=== PATIENT | female | born 1985 | race American Indian/Alaskan Native ===

== ENCOUNTER 2017-03-25 16:13 | Inpatient (IN) | payer MEDICAID ==
[2017-03-25] MEDS ORDERED: Ondansetron 4 MG/2 ML SDV IVPUSH PRN (17:08)
[2017-03-25] MEDS ORDERED: Sodium Chloride 0.9% 10 ML Syringe FLUSH PRN (17:08)
--- NOTE | 2017-03-25 17:16 | PCM.HP ---
H&P History of Present Illness - General Date of Service: 03/25/17 Admit Problem/Dx: Admission Diagnosis/Problem Admission Diagnosis/Problem Abdominal pain Source of Information: Patient - History of Present Illness Initial Comments - Free Text/Narative: Patient is a 32 year old female was sent for admission because of fever and right sided abdominal to right flank pain. She started to feel sick in the last four days. NOticed pain on the right lower quadrant up to the right lower back and down to the right leg. Has been having fever, yesterday was 103.1F, nauseated and had an episode of vomiting today. no diarrhea however felt constipated due not eating well. Has been having pain on urination but denies any hematuria. No blood in the stools either. no cough nor shortness of breath. no dysphagia. today, went to clinic, still had fever and work up showed UTI. however, because of persistent fever and pain, was advised admission. she denies history of kidney stones. denies history of recurrent UTI. had history of ovarian cyst surgery and section. LMP was 3 weeks ago; no similar symptoms in the household; no rashes nor any joint pains Right Upper Abdomen Pain Score (Numeric/FACES): 7 Back Pain Score (Numeric/FACES): 4 - Related Data Allergies/Adverse Reactions: Allergies Allergy/AdvReac Type Severity Reaction Status Date / Time No Known Allergies Allergy Verified 03/25/17 18:31 Home Medications: Home Meds Acetaminophen [Tylenol] 325 mg PO Q6H PRN 03/25/17 [History] Cranberry Ext/C/L. Sporogenes [Azo Cranberry] 6 each PO DAILY 03/25/17 [History] Ibuprofen [Ibuprofen Ib] 200 mg PO Q6H PRN 03/25/17 [History] Acetaminophen/oxyCODONE [Percocet 325-5 MG] 1 tab PO Q6H PRN #12 tablet [Rx] Ciprofloxacin HCl [Cipro] 500 mg PO BID #20 tablet 03/28/17 [Rx] Past Medical History - Past Health History Medical/Surgical History: Denies Medical/Surgical History Social & Family History - Tobacco Use Smoking Status *Q: Current Some Day Smoker Years of Tobacco use: 0 Packs/Tins Daily: 0 - Recreational Drug Use Recreational Drug Use: No H&P Review of Systems - Review of Systems: Review Of Systems: See Below General: Reports: Fever, Chills HEENT: Reports: No Symptoms Pulmonary: Reports: No Symptoms Cardiovascular: Reports: No Symptoms Gastrointestinal: Reports: Abdominal Pain, Anorexia, Decreased Appetite, Nausea , Vomiting Genitourinary: Reports: Dysuria Musculoskeletal: Reports: Back Pain Skin: Reports: No Symptoms Exam - Exam Exam: See Below - Vital Signs Weight: 70.76 kg - Exam General: Alert, Oriented HEENT: Conjunctiva Clear Neck: Supple Lungs: Clear to Auscultation, Normal Respiratory Effort Cardiovascular: Regular Rate, Regular Rhythm GI/Abdominal Exam: Soft, Other (tenderness on palpation on the right lower quadrant and right CVAT) Back Exam: Normal Inspection - Patient Data Result Diagrams: 03/27/17 05:40 03/27/17 05:40 *Q Meaningful Use (ADM) - VTE *Q VTE Criteria *Q: - Stroke *Q Stroke Criteria *Q: - AMI *Q AMI Criteria *Q: Problem List Initiated/Reviewed/Updated: Yes Orders Last 24hrs: Active Orders 24 hr Category Date Time Status Admission Status [Patient Status] [ADT] Routine ADT 03/25/17 17:07 Active Patient Status [ADT] Routine ADT 03/25/17 17:08 Ordered Intake and Output [RC] QSHIFT Care 03/25/17 17:08 Ordered Oxygen Therapy [RC] PRN Care 03/25/17 17:08 Ordered Peripheral IV Care [RC] . DIRECTED Care 03/25/17 17:10 Ordered Up With Assistance [RC] ASDIRECTED Care 03/25/17 17:08 Ordered VTE/DVT Education [RC] PER UNIT ROUTINE Care 03/25/17 17:08 Ordered Vital Signs [RC] Q4H Care 03/25/17 17:08 Ordered Nothing per Oral Now Diet [DIET] Diet 03/25/17 Dinner Ordered CULTURE BLOOD [BC] Stat Lab 03/25/17 17:10 Ordered CULTURE BLOOD [BC] Stat Lab 03/25/17 17:10 Ordered CULTURE URINE [RM] Stat Lab 03/25/17 17:08 Uncollected Enoxaparin [Lovenox] Med 03/26/17 09:00 Ordered 40 mg SUBCUT DAILY Ondansetron [Zofran] Med 03/25/17 17:08 Ordered 4 mg IVPUSH Q6H PRN Sodium Chloride 0.9% @ 125 MLS/HR (1000ml) Med 03/25/17 17:15 Ordered Sodium Chloride 0.9% [Normal Saline] 1,000 ml IV ASDIRECTED Sodium Chloride 0.9% [Saline Flush] Med 03/25/17 17:08 Ordered 10 ml FLUSH ASDIRECTED PRN Blood Culture x2 Reflex Set [OM.PC] Stat Ot 03/25/17 17:08 Ordered Peripheral IV Insertion Adult [OM.PC] Routine Oth 03/25/17 17:08 Ordered Resuscitation Status Routine Resus Stat 03/25/17 17:08 Ordered Assessment/Plan Comment:: Sepsis likely secondary to UTI - patient has leukocytosis, fever and urinalysis showing UTI - start IV fluids: normal saline 150ml/Hr; NPO - blood culture, start IV zosyn after specimen obtained - urinalysis showing signs of urine infection: send specmin for culture - however due to tenderness on RLQ + decreased appetite: do CT scan abdomen DVT prophylaxis: Lovenox SQ COde status: full
[2017-03-25] MEDS: Sodium Chloride 0.9% 1,000 ML IV SCH (17:54)
[2017-03-25] MEDS: Acetaminophen 325 MG Tab PO PRN (18:19)
[2017-03-25] MEDS: Piperacillin/Tazobactam 3.375 GM in Sodium Chloride 0.9% 100 ML IV SCH (19:13)
[2017-03-26] MEDS: Acetaminophen 325 MG Tab PO PRN ×3 (00:16→16:07)
[2017-03-26] MEDS: Piperacillin/Tazobactam 3.375 GM in Sodium Chloride 0.9% 100 ML IV SCH ×5 (00:19→23:16)
[2017-03-26] MEDS: Sodium Chloride 0.9% 1,000 ML IV SCH ×3 (02:52→21:02)
[2017-03-26 06:36] LABS: CHLORIDE,CL 103 mmol/L (101-111); SODIUM,NA 137 mmol/L (135-145)
[2017-03-26] MEDS: Enoxaparin 40 MG/0.4 ML Syringe SUBCUT SCH (09:45)
[2017-03-26] MEDS: Acetaminophen/oxyCODONE 325-5 MG Tab PO PRN ×3 (11:44→23:15)
--- NOTE | 2017-03-26 11:46 | PCM.PN ---
- General Info Date of Service: 03/26/17 Admission Dx/Problem (Free Text): Admission Diagnosis/Problem Admission Diagnosis/Problem Abdominal pain Subjective Update: Continues to have pain on the right side of abdomen, mostly in the upper quadrant. The pain is worse when urinating. Has been associated with fever. Started days ago. No bloody urine Tylenol is minimally helping. - Review of Systems General: Reports: Fever, Malaise, Chills Pulmonary: Denies: Shortness of Breath Cardiovascular: Denies: Chest Pain Gastrointestinal: Reports: Abdominal Pain Genitourinary: Reports: Dysuria Musculoskeletal: Denies: Neck Pain Neurological: Denies: Confusion, Dizziness - Patient Data Vitals - Most Recent: Last Vital Signs Temp 36.9 C 03/26/17 11:00 Pulse 76 03/26/17 11:00 Resp 20 03/26/17 11:00 BP 96/47 L 03/26/17 11:00 Pulse Ox 97 03/26/17 11:00 Weight - Most Recent: 70.76 kg I&O - Last 24 Hours: Intake & Output 03/25/17 03/26/17 03/26/17 22:59 06:59 14:59 Intake Total 150 1658 Output Total 200 400 Balance -50 1258 Lab Results Last 24 Hours: Laboratory Results - last 24 hr 03/26/17 03/26/17 Range/Units 05:32 05:32 WBC 14.6 H (5.0-10.0) 10^3/uL RBC 4.45 (4.2-5.4) 10^6/uL Hgb 13.2 (12.0-16.0) g/dL Hct 39.9 (37.0-47.0) % MCV 89.7 (80-100) fL MCH 29.7 (27.0-34.0) pg MCHC 33.1 (33.0-35.0) g/dL Plt Count 257 (150-450) 10^3/uL Neut % (Auto) 76.2 H (42.2-75.2) % Lymph % (Auto) 16.6 L (20.5-50.1) % Cole % (Auto) 6.7 (2-8) % Eos % (Auto) 0.3 L (1.0-3.0) % Baso % (Auto) 0.2 (0.0-1.0) % Sodium 137 (135-145) mmol/L Potassium 3.6 (3.6-5.0) mmol/L Chloride 103 (101-111) mmol/L Carbon Dioxide 21.0 (21.0-31.0) mmol/L Anion Gap 16.6 BUN 7 (7-18) mg/dL Creatinine 0.6 (0.6-1.3) mg/dL Est Cr Clr Drug Dosing 108.43 mL/min Estimated GFR (MDRD) > 60 Glucose 88 (74-105) mg/dL Calcium 8.9 (8.4-10.2) mg/dl Kane Results Last 24 Hours: Microbiology 03/25/17 17:08 Urine Culture - Preliminary Urine, Voided 03/25/17 17:35 Anaerobic Blood Culture - Preliminary Blood - Venous - Lab Draw 03/25/17 17:30 Anaerobic Blood Culture - Final Blood - Venous Med Orders - Current: Current Medications Acetaminophen (Tylenol) 650 mg PO Q6H PRN PRN Reason: Fever Last Admin: 03/26/17 06:21 Dose: 650 mg Enoxaparin Sodium (Lovenox) 40 mg SUBCUT DAILY [facility] Last Admin: 03/26/17 09:45 Dose: 40 mg Sodium Chloride (Normal Saline) 1,000 mls @ 125 mls/hr IV ASDIRECTED [facility] Last Admin: 03/26/17 11:23 Dose: 125 mls/hr Piperacillin Sod/Tazobactam (Sod 3.375 gm/ Sodium Chloride) 100 mls @ 200 mls/ hr IV Q6H [facility] Last Admin: 03/26/17 05:50 Dose: 200 mls/hr Ondansetron HCl (Zofran) 4 mg IVPUSH Q6H PRN PRN Reason: Nausea/Vomiting Last Admin: 03/26/17 11:23 Dose: 4 mg Oxycodone/Acetaminophen (Percocet 325-5 Mg) 1 tab PO Q6H PRN PRN Reason: Pain Sodium Chloride (Saline Flush) 10 ml FLUSH ASDIRECTED PRN PRN Reason: Keep Vein Open Last Admin: 03/25/17 17:54 Dose: 10 ml - Exam Quality Assessment: No: Supplemental Oxygen General: Alert, Oriented Neck: Supple Lungs: Clear to Auscultation, Normal Respiratory Effort Cardiovascular: Regular Rate, Regular Rhythm GI/Abdominal Exam: Normal Bowel Sounds, Soft, No Distention, Tender (Right side including the flank area) Extremities: No Pedal Edema Skin: Warm, Dry Neurological: No New Focal Deficit Psy/Mental Status: Alert, Normal Affect, Normal Mood - Problem List & Annotations (1) UTI (urinary tract infection) SNOMED Code(s): 38248391 Code(s): N39.0 - URINARY TRACT INFECTION, SITE NOT SPECIFIED Status: Acute Current Visit: Yes (2) Sepsis SNOMED Code(s): 02213892 Code(s): A41.9 - SEPSIS, UNSPECIFIED ORGANISM Status: Acute Current Visit : Yes (3) Bacteremia SNOMED Code(s): 5945927 Code(s): R78.81 - BACTEREMIA Status: Acute Current Visit: Yes - Problem List Review Problem List Initiated/Reviewed/Updated: Yes - My Orders Last 24 Hours: My Active Orders 03/26/17 09:16 Acetaminophen/oxyCODONE [Percocet 325-5 MG] 1 tab PO Q6H PRN 03/26/17 Lunch General [Regular Diet] [DIET] 03/27/17 05:15 BASIC METABOLIC PANEL,BMP [CHEM] AM CBC WITH AUTO DIFF [HEME] AM - Plan Plan:: Gram negative Sepsis POA secondary to UTI and Pyelonephritis as seen on CT - patient has leukocytosis, fever and urinalysis showing UTI - Blood cx: gram neg nirmala - Ucx: gram neg - Continue IV fluids: - Can advance diet - Continue IV zosyn DVT prophylaxis: Lovenox SQ
[2017-03-27] MEDS: Sodium Chloride 0.9% 1,000 ML IV SCH ×3 (05:49→23:24)
[2017-03-27] MEDS: Piperacillin/Tazobactam 3.375 GM in Sodium Chloride 0.9% 100 ML IV SCH ×4 (05:51→23:23)
[2017-03-27] MEDS: Acetaminophen/oxyCODONE 325-5 MG Tab PO PRN ×3 (06:00→18:43)
[2017-03-27 06:53] LABS: CHLORIDE,CL 107 mmol/L (101-111); SODIUM,NA 137 mmol/L (135-145)
[2017-03-27] MEDS: Enoxaparin 40 MG/0.4 ML Syringe SUBCUT SCH (10:55)
--- NOTE | 2017-03-27 11:27 | PCM.PN ---
- General Info Date of Service: 03/27/17 Admission Dx/Problem (Free Text): Admission Diagnosis/Problem Admission Diagnosis/Problem Abdominal pain Subjective Update: Continues to have pain in b/l flank areas. The pain is worse when urinating. Has been associated with fever. Started days ago. No bloody urine no associated n/v Functional Status: Reports: Pain Controlled - Review of Systems General: Reports: Fever Pulmonary: Denies: Shortness of Breath Cardiovascular: Denies: Chest Pain Genitourinary: Reports: Dysuria, Burning, Pain - Patient Data Vitals - Most Recent: Last Vital Signs Temp 35.9 C 03/27/17 07:00 Pulse 64 03/27/17 07:00 Resp 20 03/27/17 07:00 BP 111/59 L 03/27/17 07:00 Pulse Ox 98 03/27/17 07:00 Weight - Most Recent: 70.76 kg I&O - Last 24 Hours: Intake & Output 03/26/17 03/27/17 03/27/17 22:59 06:59 14:59 Intake Total 240 2030 Output Total 300 300 Balance -60 1730 Lab Results Last 24 Hours: Laboratory Results - last 24 hr 03/27/17 03/27/17 Range/Units 05:40 05:40 WBC 7.6 (5.0-10.0) 10^3/uL RBC 3.86 L (4.2-5.4) 10^6/uL Hgb 11.5 L (12.0-16.0) g/dL Hct 34.9 L (37.0-47.0) % MCV 90.4 (80-100) fL MCH 29.8 (27.0-34.0) pg MCHC 33.0 (33.0-35.0) g/dL Plt Count 243 (150-450) 10^3/uL Neut % (Auto) 61.2 (42.2-75.2) % Lymph % (Auto) 28.7 (20.5-50.1) % [place] % (Auto) 7.7 (2-8) % Eos % (Auto) 2.0 (1.0-3.0) % Baso % (Auto) 0.4 (0.0-1.0) % Sodium 137 (135-145) mmol/L Potassium 3.9 (3.6-5.0) mmol/L Chloride 107 (101-111) mmol/L Carbon Dioxide 21.0 (21.0-31.0) mmol/L Anion Gap 12.9 BUN 4 L (7-18) mg/dL Creatinine 0.5 L (0.6-1.3) mg/dL Est Cr Clr Drug Dosing 130.12 mL/min Estimated GFR (MDRD) > 60 Glucose 98 (74-105) mg/dL Calcium 8.4 (8.4-10.2) mg/dl Kane Results Last 24 Hours: Microbiology 03/25/17 17:08 Urine Culture - Final Urine, Voided Escherichia Coli 03/25/17 17:35 Aerobic Blood Culture - Preliminary Blood - Venous - Lab Draw NO GROWTH AFTER 1 DAY Anaerobic Blood Culture - Preliminary 03/25/17 17:30 Aerobic Blood Culture - Preliminary Blood - Venous NO GROWTH AFTER 1 DAY Anaerobic Blood Culture - Final Med Orders - Current: Current Medications Acetaminophen (Tylenol) 650 mg PO Q6H PRN PRN Reason: Fever Last Admin: 03/26/17 16:07 Dose: 650 mg Enoxaparin Sodium (Lovenox) 40 mg SUBCUT DAILY [facility] Last Admin: 03/27/17 10:55 Dose: 40 mg Sodium Chloride (Normal Saline) 1,000 mls @ 125 mls/hr IV ASDIRECTED [facility] Last Admin: 03/27/17 05:49 Dose: 125 mls/hr Piperacillin Sod/Tazobactam (Sod 3.375 gm/ Sodium Chloride) 100 mls @ 200 mls/ hr IV Q6H [facility] Last Admin: 03/27/17 05:51 Dose: 200 mls/hr Ondansetron HCl (Zofran) 4 mg IVPUSH Q6H PRN PRN Reason: Nausea/Vomiting Last Admin: 03/26/17 11:23 Dose: 4 mg Oxycodone/Acetaminophen (Percocet 325-5 Mg) 1 tab PO Q6H PRN PRN Reason: Pain Last Admin: 03/27/17 06:00 Dose: 1 tab Sodium Chloride (Saline Flush) 10 ml FLUSH ASDIRECTED PRN PRN Reason: Keep Vein Open Last Admin: 03/25/17 17:54 Dose: 10 ml - Exam General: Alert, Oriented Neck: Supple Lungs: Clear to Auscultation, Normal Respiratory Effort Cardiovascular: Regular Rate, Regular Rhythm Extremities: No Pedal Edema - Problem List & Annotations (1) UTI (urinary tract infection) SNOMED Code(s): 21587615 Code(s): N39.0 - URINARY TRACT INFECTION, SITE NOT SPECIFIED Status: Acute Current Visit: Yes Qualifiers: Urinary tract infection type: acute pyelonephritis Qualified Code(s): N10 - Acute pyelonephritis (2) Sepsis SNOMED Code(s): 54598020 Code(s): A41.9 - SEPSIS, UNSPECIFIED ORGANISM Status: Acute Current Visit : Yes Qualifiers: Sepsis type: Escherichia coli Qualified Code(s): A41.51 - Sepsis due to Escherichia coli [E. coli] (3) Bacteremia SNOMED Code(s): 5769511 Code(s): R78.81 - BACTEREMIA Status: Acute Current Visit: Yes - Problem List Review Problem List Initiated/Reviewed/Updated: Yes - My Orders Last 24 Hours: My Active Orders 03/26/17 Lunch General [Regular Diet] [DIET] - Plan Plan:: Gram negative Sepsis POA secondary to UTI and Pyelonephritis as seen on CT - patient has leukocytosis, fever and urinalysis showing UTI - Blood cx: gram neg nirmala ID pending - Ucx: E coli - sens to zosyn - Continue IV fluids - Continue IV zosyn DVT prophylaxis: Lovenox SQ
[2017-03-27] MEDS: Acetaminophen 325 MG Tab PO PRN (16:59)
[2017-03-28] MEDS: Acetaminophen/oxyCODONE 325-5 MG Tab PO PRN ×2 (00:10→09:51)
[2017-03-28] MEDS: Piperacillin/Tazobactam 3.375 GM in Sodium Chloride 0.9% 100 ML IV SCH ×2 (06:00→11:55)
[2017-03-28 07:19] VITALS: BP 131/83
[2017-03-28] MEDS: Sodium Chloride 0.9% 1,000 ML IV SCH (07:27)
[2017-03-28] MEDS: Enoxaparin 40 MG/0.4 ML Syringe SUBCUT SCH (09:54)
--- NOTE | 2017-03-28 11:03 | PCM.DCSUM1 ---
Discharge Summary - Hospital Course Free Text/Narrative:: presented with abdominal pain noted to have abnormal UA and ct evidence of pyelonephritis Gram negative Sepsis POA secondary to UTI and Pyelonephritis due to E coli - patient has leukocytosis, fever and urinalysis showing UTI - Blood cx: and Ucx: E coli - sens to zosyn and cipro was treated with IV zosyn leukocytosis resolved no further fever Will cont 10 days of Cipro for bacteremia, sepsis follow up with PMD in 2-3 days - Discharge Data Discharge Date: 03/28/17 Discharge Disposition: Home, Self-Care 01 Condition: Good - Discharge Diagnosis/Problem(s) (1) UTI (urinary tract infection) SNOMED Code(s): 02065662 ICD Code: N39.0 - URINARY TRACT INFECTION, SITE NOT SPECIFIED Status: Acute Current Visit: Yes Qualifiers: Urinary tract infection type: acute pyelonephritis Qualified Code(s): N10 - Acute pyelonephritis (2) Sepsis SNOMED Code(s): 55140630 ICD Code: A41.9 - SEPSIS, UNSPECIFIED ORGANISM Status: Acute Current Visit: Yes Qualifiers: Sepsis type: Escherichia coli Qualified Code(s): A41.51 - Sepsis due to Escherichia coli [E. coli] (3) Bacteremia SNOMED Code(s): 5545146 ICD Code: R78.81 - BACTEREMIA Status: Acute Current Visit: Yes - Patient Instructions Diet: Usual Diet as Tolerated Activity: As Tolerated - Discharge Plan Prescriptions/Med Rec: Acetaminophen/oxyCODONE [Percocet 325-5 MG] 1 tab PO Q6H PRN #12 tablet PRN Reason: severe pain Ciprofloxacin HCl [Cipro] 500 mg PO BID #20 tablet Home Medications: Home Meds Acetaminophen [Tylenol] 325 mg PO Q6H PRN 03/25/17 [History] Cranberry Ext/C/L. Sporogenes [Azo Cranberry] 6 each PO DAILY 03/25/17 [History] Ibuprofen [Ibuprofen Ib] 200 mg PO Q6H PRN 03/25/17 [History] Acetaminophen/oxyCODONE [Percocet 325-5 MG] 1 tab PO Q6H PRN #12 tablet [Rx] Ciprofloxacin HCl [Cipro] 500 mg PO BID #20 tablet 03/28/17 [Rx] Referrals: Aakash Munoz MD [Primary Care Provider] - (in 2-3 days) - Discharge Summary/Plan Comment DC Time >30 min.: No - Patient Data Vitals - Most Recent: Last Vital Signs Temp 36.5 C 03/28/17 07:00 Pulse 71 03/28/17 07:00 Resp 20 03/28/17 07:00 BP 131/83 03/28/17 07:00 Pulse Ox 100 03/28/17 07:00 Weight - Most Recent: 70.76 kg I&O - Last 24 hours: Intake & Output 03/27/17 03/28/17 03/28/17 22:59 06:59 14:59 Intake Total 1818 1480 Output Total 400 400 700 Balance 1418 1080 -700 EGNE Results - Last 24 hrs: Microbiology 03/25/17 17:35 Aerobic Blood Culture - Preliminary Blood - Venous - Lab Draw NO GROWTH AFTER 2 DAYS Anaerobic Blood Culture - Final Escherichia Coli 03/25/17 17:30 Aerobic Blood Culture - Preliminary Blood - Venous NO GROWTH AFTER 2 DAYS Anaerobic Blood Culture - Final 03/25/17 17:08 Urine Culture - Final Urine, Voided Escherichia Coli Med Orders - Current: Current Medications Acetaminophen (Tylenol) 650 mg PO Q6H PRN PRN Reason: Fever Last Admin: 03/27/17 16:59 Dose: 650 mg Enoxaparin Sodium (Lovenox) 40 mg SUBCUT DAILY [facility] Last Admin: 03/28/17 09:54 Dose: 40 mg Sodium Chloride (Normal Saline) 1,000 mls @ 125 mls/hr IV ASDIRECTED [facility] Last Admin: 03/28/17 07:27 Dose: 125 mls/hr Piperacillin Sod/Tazobactam (Sod 3.375 gm/ Sodium Chloride) 100 mls @ 200 mls/ hr IV Q6H [facility] Last Admin: 03/28/17 06:00 Dose: 200 mls/hr Ondansetron HCl (Zofran) 4 mg IVPUSH Q6H PRN PRN Reason: Nausea/Vomiting Last Admin: 03/26/17 11:23 Dose: 4 mg Oxycodone/Acetaminophen (Percocet 325-5 Mg) 1 tab PO Q6H PRN PRN Reason: Pain Last Admin: 03/28/17 09:51 Dose: 1 tab Sodium Chloride (Saline Flush) 10 ml FLUSH ASDIRECTED PRN PRN Reason: Keep Vein Open Last Admin: 03/25/17 17:54 Dose: 10 ml *Q Meaningful Use (DIS) - VTE *Q VTE Criteria *Q: - Stroke *Q Stroke Criteria *Q: - AMI *Q AMI Criteria *Q:
== END 2017-03-28 13:45 | disposition home or self-care (01) | DRG 872 ==
LOC: DL.MS 17:07
PROVIDERS: ADMIT Internal Medicine; ATTEND Internal Medicine
DX: A41.51 Sepsis due to Escherichia coli [E. coli] (principal); N39.0 Urinary tract infection, site not specified; N10 Acute pyelonephritis; F17.210 Nicotine dependence, cigarettes, uncomplicated
CPT/HCPCS: 36415; 71010; 74176; 80048; 85025; 87040; 87077; 87086; 87088; 87186; A9270-GY; J1650; J2405; J2543; J7030; J7050

== ENCOUNTER 2020-06-02 12:27 | Emergency (ER) | payer MEDICAID, SELFPAY ==
[2020-06-02 12:44] VITALS: BP 115/79; PULSE 84
--- NOTE | 2020-06-02 12:59 | EDM.PDOC ---
<KwesiwendyDonovanian - Last Filed: 06/02/20 13:14> ED HPI GENERAL MEDICAL PROBLEM - General Stated Complaint: EYE PROBLEMS Time Seen by Provider: 06/02/20 12:40 - Related Data Allergies Allergy/AdvReac Type Severity Reaction Status Date / Time No Known Allergies Allergy Verified 06/02/20 12:40 Home Meds: Home Meds Ibuprofen [Ibuprofen Ib] 400 mg PO Q6H PRN 03/25/17 [History] Erythromycin Base [Erythromycin 0.5% Ophth Oint] 1 applic OP Q12H #1 tube 06/02/20 [Rx] Course - Re-Assessments/Exams Free Text/Narrative Re-Assessment/Exam: 06/02/20 13:14 I saw and evaluated the patient. Discussed with resident and agree with residents findings and plan as documented in the residents note. Departure - Departure Disposition: Home, Self-Care 01 Clinical Impression: Blepharitis of left lower eyelid Qualifiers: Blepharitis type: unspecified type Qualified Code(s): H01.005 - Unspecified blepharitis left lower eyelid - Discharge Information Prescriptions: Erythromycin Base [Erythromycin 0.5% Ophth Oint] 1 applic OP Q12H #1 tube Instructions: Blepharitis, [id number] Additional Instructions: Continue to apply warm compresses to the eye every 2-3 hours. Gently massage the lower lid throughout the day. Apply erythromycin ointment twice daily until symptoms improve. If this problem persists or worsens, or if you experience any visual changes, contact the emergency department or make an appointment with your primary physician. <Jose Bates - Last Filed: 06/02/20 13:28> ED HPI GENERAL MEDICAL PROBLEM - General Source of Information: Reports: Patient History Limitations: Reports: No Limitations - History of Present Illness INITIAL COMMENTS - FREE TEXT/NARRATIVE: Patient is a 35 y/o female who presents from a treatment facility c/o swelling, redness, and pain of the left lower eyelid. Onset 3 days ago. There has been eye discharge, eye has been stuck shut in the mornings. She has been using warm compresses on the eye which have not been effective in resolving the problem. Also using some OTC eye drops, unsure of formulation. She has had problems like this in the past which resolved after using warm compress. Denies any fever or visual changes. Denies any other upper respiratory symptoms. There has been redness of the surrounding skin but none involving the eye itself. Left Eye Pain Score (Numeric/FACES): 5 Past Medical History - Past Health History Medical/Surgical History: Denies Medical/Surgical History Genitourinary History: Reports: None [employer] History: Reports: - Past Surgical History Female Surgical History: Reports: Section, LEEP, Tubal Ligation Social & Family History - Family History Cardiac: Reports: Heart Failure Other Cardiac Family History: mother Other Family History: Mother has kidney failure Neurological: Reports: Seizure Other Neurological Family History: Mother epileptic and has seizures Other Endocrine/Metabolic Family History: Mother has diabetes; client unsure which type - Caffeine Use Caffeine Use: Reports: Soda Caffeine Use Comment: [employer] ED ROS GENERAL - Review of Systems Review Of Systems: Comprehensive ROS is negative, except as noted in HPI. ED EXAM GENERAL W FULL EYE - Physical Exam Exam: See Below Exam Limited By: No Limitations General Appearance: Alert, WD/WN, No Apparent Distress Eye Exam: Left Eye: Periorbital Changes, Bilateral Eye: EOMI, PERRL Eyelids: Right: Normal Appearance, Left: Edema, Erythema, Stye, Bilateral: Lid Everted for Exam Conjunctiva & Sclera: Bilateral: Normal Appearance Extraocular Movements: Bilateral: Intact Pupils: Normal Accommodation Ears: Normal External Exam, Normal Canal, Hearing Grossly Normal, Normal TMs Nose: Normal Inspection, Normal Mucosa, No Blood Throat/Mouth: Normal Voice, No Airway Compromise Head: Atraumatic, Normocephalic Neck: Normal Inspection, Supple, Lymphadenopathy (L), Lymphadenopathy (R) Respiratory/Chest: No Respiratory Distress, Lungs Clear, Normal Breath Sounds, No Accessory Muscle Use Cardiovascular: Normal Peripheral Pulses, Regular Rate, Rhythm, No Murmur Neurological: Alert, Oriented, Normal Cognition Psychiatric: Normal Affect, Normal Mood Skin Exam: Warm, Dry, Intact Course - Vital Signs Last Recorded V/S: Last Vital Signs Temp 98.3 F 06/02/20 12:31 Pulse 84 06/02/20 12:31 Resp 16 06/02/20 12:31 BP 115/79 06/02/20 12:31 Pulse Ox 99 06/02/20 12:31 Departure - Departure Time of Disposition: 12:53 Condition: Good - Discharge Information *PRESCRIPTION DRUG MONITORING PROGRAM REVIEWED*: Not Applicable *COPY OF PRESCRIPTION DRUG MONITORING REPORT IN PATIENT ZEESHAN: Not Applicable Sepsis Event Note (ED) - Evaluation Sepsis Screening Result: No Definite Risk - Focused Exam Vital Signs: Vital Signs Temp Pulse Resp BP Pulse Ox 06/02/20 12:31 98.3 F 84 16 115/79 99 - Assessment/Plan Assessment:: Left lower eyelid blepharitis. Mild erythema and swelling of the lower eyelid. No conjunctival or scleral involvement. Plan: Prescribed erythromycin ointment. Apply twice daily until symptoms are improved. Continue warm compresses, gentle massage to swollen area. Discussed return criteria, recommend follow up in primary care. Patient voices understanding and agreement with the plan.
== END 2020-06-02 13:10 | disposition home or self-care (01) ==
LOC: DL.ED 12:27
DX: H01.005 Unspecified blepharitis left lower eyelid (principal); Z98.890 Other specified postprocedural states
CPT/HCPCS: 99283

== ENCOUNTER 2020-07-27 23:05 | Emergency (ER) | payer MEDICAID | END 2020-07-28 00:05 | disposition left against medical advice (07) | LOC: DL.ED 23:05 | DX: Z53.21 Procedure and treatment not carried out due to patient leaving prior to being seen by health care provider (principal) ==

== ENCOUNTER 2020-08-03 00:21 | Inpatient (IN) | payer MEDICAID ==
[2020-08-03] MEDS ORDERED: fentaNYL 100 MCG/2 ML SDV IVPUSH ONE (00:58)
[2020-08-03] MEDS ORDERED: Lactated Ringers 1,000 ML IV ONE (00:58)
[2020-08-03 01:11] LABS: ANION GAP 10.8 mEq/L (7-13); CHLORIDE,CL 102 mmol/L (98-107); SODIUM,NA 137 mmol/L (136-145)
[2020-08-03] MEDS ORDERED: Iopamidol 612 MG/ML 100 ML Bottle IVPUSH ONE (02:02)
[2020-08-03] MEDS ORDERED: cefTRIAXone 2 GM in Sodium Chloride 0.9% 100 ML IV ONE (02:51)
--- NOTE | 2020-08-03 03:12 | CT ---
PROCEDURE INFORMATION: Exam: CT Abdomen And Pelvis With Contrast Exam date and time: 08/03/2020 2:26 AM Age: 35 years old Clinical indication: Other: Wbc 19,100; Additional info: Right sided pain TECHNIQUE: Imaging protocol: Computed tomography of the abdomen and pelvis with intravenous contrast. Radiation optimization: All CT scans at this facility use at least one of these dose optimization techniques: automated exposure control; mA and/or kV adjustment per patient size (includes targeted exams where dose is matched to clinical indication); or iterative reconstruction. Contrast material: [id number]; Contrast volume: 100 ml; Contrast route: INTRAVENOUS (IV); COMPARISON: CT Abdomen Pelvis wo Cont 03/25/2017 5:38 PM FINDINGS: Liver: Normal. No mass. Gallbladder and bile ducts: Normal. No calcified stones. No ductal dilation. Pancreas: Normal. No ductal dilation. Spleen: Normal. No splenomegaly. Adrenal glands: Normal. No mass. Kidneys and ureters: Uroepithelial thickening of the right kidney with inhomogeneity in the right kidney consistent with right-sided ureteritis with pyelonephritis. There is no evidence for renal calculi or obstructive uropathy. Stomach and bowel: Unremarkable. No obstruction. No mucosal thickening. Appendix: Normal appendix right lower quadrant. Intraperitoneal space: Unremarkable. No free air. No significant fluid collection. Vasculature: Unremarkable. No abdominal aortic aneurysm. Lymph nodes: Unremarkable. No enlarged lymph nodes. Urinary bladder: Unremarkable as visualized. Reproductive: Unremarkable as visualized. Bones/joints: Unremarkable. No acute fracture. Soft tissues: Unremarkable. IMPRESSION: 1. Uroepithelial thickening of the right kidney with inhomogeneity in the right kidney consistent with right-sided ureteritis with pyelonephritis. There is no evidence for renal calculi or obstructive uropathy. Please correlate with urinalysis. 2. Normal appendix right lower quadrant
--- NOTE | 2020-08-03 03:15 | EDM.PDOC ---
ED HPI GENERAL MEDICAL PROBLEM - General Chief Complaint: Abdominal Pain Stated Complaint: RITGHT SIDE, BACK & FRONT SHARP PAIN Time Seen by Provider: 08/03/20 01:30 Source of Information: Reports: Patient, RN, RN Notes Reviewed History Limitations: Reports: No Limitations - History of Present Illness INITIAL COMMENTS - FREE TEXT/NARRATIVE: Patient is a 35-year-old female who presents to the ER with complaint of sharp pain in the right lower quadrant and right flank. Patient states she thinks she has had a UTI and it has worsened. Patient [facility] to the ER [facility]2020 [facility]. Patient admits to fever and chills, nausea and vomiting. Denies diarrhea, chest pains, shortness of breath. Patient rates pain 10/10. 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: Musculoskeletal History: Reports: None Neurological History: Reports: None Psychiatric History: Reports: Addiction Endocrine/Metabolic History: Reports: None Hematologic History: Reports: None Oncologic (Cancer) History: Reports: None Dermatologic History: Reports: None - Past Surgical History Female Surgical History: Reports: Section, LEEP, Tubal Ligation Social & Family History - Family History Cardiac: Reports: Heart Failure Other Cardiac Family History: mother Other Family History: Mother has kidney failure Neurological: Reports: Seizure Other Neurological Family History: Mother epileptic and has seizures Other Endocrine/Metabolic Family History: Mother has diabetes; client unsure which type - Tobacco Use Tobacco Use Status *Q: Current Every Day Tobacco User Years of Tobacco use: 10 Packs/Tins Daily: 0.5 - Caffeine Use Caffeine Use: Reports: Coffee Caffeine Use Comment: Herbalife - Recreational Drug Use Recreational Drug Use: No ED ROS GENERAL - Review of Systems Review Of Systems: Comprehensive ROS is negative, except as noted in HPI. ED EXAM, RENAL/ - Physical Exam Exam: See Below Exam Limited By: No Limitations General Appearance: Alert, WD/WN, Anxious, Moderate Distress Eye Exam: Bilateral Eye: EOMI, Normal Inspection Ears: Normal External Exam, Hearing Grossly Normal Nose: Normal Inspection Throat/Mouth: Normal Inspection, Normal Voice, No Airway Compromise Head: Atraumatic, Normocephalic Neck: Normal Inspection, Supple, Non-Tender, Full Range of Motion Respiratory/Chest: No Respiratory Distress, Lungs Clear, Normal Breath Sounds, No Accessory Muscle Use, Chest Non-Tender Cardiovascular: Normal Peripheral Pulses, Regular Rate, Rhythm, No Edema, No Gallop, No JVD, No Murmur, No Rub GI/Abdominal: Normal Bowel Sounds, Soft, Tender (RLQ) (Female) Exam: Deferred Rectal (Female) Exam: Deferred Back Exam: Normal Inspection, Full Range of Motion, CVA Tenderness (R) Extremities: Normal Inspection, Normal Range of Motion, Non-Tender, Normal Capillary Refill, No Pedal Edema Neurological: Alert, Oriented, CN II-XII Intact, Normal Cognition, Normal Gait, Normal Reflexes, No Motor/Sensory Deficits Psychiatric: Anxious, Tearful Skin Exam: Warm, Dry, Intact, Normal Color, No Rash Lymphatic: No Adenopathy Course - Vital Signs Last Recorded V/S: Last Vital Signs Temp 98.6 F 08/03/20 23:17 Pulse 66 08/03/20 23:17 Resp 18 08/03/20 23:17 BP 99/67 08/03/20 23:17 Pulse Ox 95 08/03/20 23:17 - Orders/Labs/Meds Orders: Active Orders 24 hr Category Date Time Status CULTURE BLOOD [BC] Stat Lab 08/03/20 01:50 Results CULTURE BLOOD [BC] Stat Lab 08/03/20 01:54 Results Medication Orders Acetaminophen (Tylenol) 650 mg PO Q4H PRN PRN Reason: Pain (Mild 1-3)/fever Fentanyl (Sublimaze) 25 mcg IVPUSH Q4H PRN PRN Reason: Pain (severe 7-10) Piperacillin Sod/Tazobactam (Sod 3.375 gm/ Sodium Chloride) 100 mls @ 200 mls/hr IV Q6H JAKY Last Infusion: 08/04/20 01:19 Dose: 200 mls/hr Documented by: Admin: 08/03/20 23:03 Dose: 200 mls/hr Documented by: Infusion: 08/03/20 18:40 Dose: 200 mls/hr Documented by: Admin: 08/03/20 18:00 Dose: 200 mls/hr Documented by: LEEANN Ondansetron HCl (Zofran Odt) 4 mg PO Q4H PRN PRN Reason: nausea, able to take PO Ondansetron HCl (Zofran) 4 mg IVPUSH Q4H PRN PRN Reason: Nausea/Vomiting Oxycodone HCl (Oxycodone) 5 mg PO Q4H PRN PRN Reason: Pain (moderate 4-6) Last Admin: 08/03/20 23:41 Dose: 5 mg Documented by: Admin: 08/03/20 20:08 Dose: 5 mg Documented by: Admin: 08/03/20 16:00 Dose: 5 mg Documented by: Admin: 08/03/20 09:28 Dose: 5 mg Documented by: Admin: 08/03/20 05:13 Dose: 5 mg Documented by: BEBE Sodium Chloride (Saline Flush) 10 ml FLUSH ASDIRECTED PRN PRN Reason: Keep Vein Open Last Admin: 08/03/20 23:03 Dose: 10 ml Documented by: MADELINE Labs: Laboratory Tests 08/03/20 08/03/20 08/03/20 Range/Units 00:42 00:42 00:44 WBC 19.1 H (5.0-10.0) 10^3/uL RBC 4.36 (4.2-5.4) 10^6/uL Hgb 12.7 (12.0-16.0) g/dL Hct 39.0 (37.0-47.0) % MCV 89.4 (80-100) fL MCH 29.1 (27.0-34.0) pg MCHC 32.6 L (33.0-35.0) g/dL Plt Count 253 (150-450) 10^3/uL Lymph % (Auto) 13.9 L (20.5-50.1) % [place] % (Auto) 4.1 (2-8) % Eos % (Auto) 0.6 L (1.0-3.0) % Add Manual Diff Yes Neutrophils % (Manual) 82 H (42-75) % Lymphocytes % (Manual) 14 L (20-50) % Monocytes % (Manual) 3 (2-8) % Eosinophils % (Manual) 1 (1-3) % Sodium (136-145) mmol/L Potassium (3.5-5.1) mmol/L Chloride (98-107) mmol/L Carbon Dioxide (21-32) mmol/L Anion Gap (7-13) mEq/L BUN (7-18) mg/dL Creatinine (0.55-1.02) mg/dL Est Cr Clr Drug Dosing mL/min Estimated GFR (MDRD) BUN/Creatinine Ratio (No establ ref range) Glucose (74-99) mg/dL Lactic Acid (0.4-2.0) mmol/L Calcium (8.5-10.1) mg/dL Total Bilirubin (0.2-1.0) mg/dL AST (15-37) U/L ALT (14-59) U/L Alkaline Phosphatase (46-116) U/L Total Protein (6.4-8.2) g/dL Albumin (3.4-5.0) g/dL Globulin Albumin/Globulin Ratio Urine Color Yellow (YELLOW) Urine Appearance Turbid (CLEAR) Urine pH 7.0 (5.0-9.0) Ur Specific [place] 1.025 (1.005-1.030) Urine Protein 100 H (NEGATIVE) Urine Glucose (UA) Negative (NEGATIVE) Urine Ketones Negative (NEGATIVE) Urine Occult Blood Small H (NEGATIVE) Urine Nitrite Positive H (NEGATIVE) Urine Bilirubin Negative (NEGATIVE) Urine Urobilinogen 0.2 (0.2-1.0) mg/dL Ur Leukocyte Esterase Small H (NEGATIVE) Urine RBC 10-20 H /HPF Urine WBC >100 H (0-5/HPF) /HPF Ur Epithelial Cells Few (NOT SEEN) /HPF Amorphous Sediment Moderate H (NOT SEEN) /HPF Urine Bacteria Many H (0-FEW/HPF) /HPF Urine Mucus Few H (NOT SEEN) /LPF Urine HCG, Qual Negative 08/03/20 08/03/20 Range/Units 00:44 01:54 WBC (5.0-10.0) 10^3/uL RBC (4.2-5.4) 10^6/uL Hgb (12.0-16.0) g/dL Hct (37.0-47.0) % MCV (80-100) fL MCH (27.0-34.0) pg MCHC (33.0-35.0) g/dL Plt Count (150-450) 10^3/uL Lymph % (Auto) (20.5-50.1) % [place] % (Auto) (2-8) % Eos % (Auto) (1.0-3.0) % Add Manual Diff Neutrophils % (Manual) (42-75) % Lymphocytes % (Manual) (20-50) % Monocytes % (Manual) (2-8) % Eosinophils % (Manual) (1-3) % Sodium 137 (136-145) mmol/L Potassium 3.8 (3.5-5.1) mmol/L Chloride 102 (98-107) mmol/L Carbon Dioxide 28 (21-32) mmol/L Anion Gap 10.8 (7-13) mEq/L BUN 10 (7-18) mg/dL Creatinine 0.79 (0.55-1.02) mg/dL Est Cr Clr Drug Dosing 72.75 mL/min Estimated GFR (MDRD) > 60 BUN/Creatinine Ratio 12.7 (No establ ref range) Glucose 82 (74-99) mg/dL Lactic Acid 1.5 (0.4-2.0) mmol/L Calcium 8.8 (8.5-10.1) mg/dL Total Bilirubin 0.3 (0.2-1.0) mg/dL AST 11 L (15-37) U/L ALT 16 (14-59) U/L Alkaline Phosphatase 106 (46-116) U/L Total Protein 7.2 (6.4-8.2) g/dL Albumin 3.7 (3.4-5.0) g/dL Globulin 3.5 Albumin/Globulin Ratio 1.1 Urine Color (YELLOW) Urine Appearance (CLEAR) Urine pH (5.0-9.0) Ur Specific [place] (1.005-1.030) Urine Protein (NEGATIVE) Urine Glucose (UA) (NEGATIVE) Urine Ketones (NEGATIVE) Urine Occult Blood (NEGATIVE) Urine Nitrite (NEGATIVE) Urine Bilirubin (NEGATIVE) Urine Urobilinogen (0.2-1.0) mg/dL Ur Leukocyte Esterase (NEGATIVE) Urine RBC /HPF Urine WBC (0-5/HPF) /HPF Ur Epithelial Cells (NOT SEEN) /HPF Amorphous Sediment (NOT SEEN) /HPF Urine Bacteria (0-FEW/HPF) /HPF Urine Mucus (NOT SEEN) /LPF Urine HCG, Qual Meds: Medications Generic Name Dose Route Start Last Admin Trade Name Brody PRN Reason Stop Dose Admin Acetaminophen 650 mg 08/03/20 04:44 Tylenol PO Q4H PRN Pain (Mild 1-3)/fever Fentanyl 25 mcg 08/03/20 05:22 Sublimaze IVPUSH Q4H PRN Pain (severe 7-10) Piperacillin Sod/Tazobactam 100 mls @ 200 mls/hr 08/03/20 17:45 08/04/20 01:19 Sod 3.375 gm/ Sodium Chloride IV Infused Q6H JAKY Infusion Ondansetron HCl 4 mg 08/03/20 04:44 Zofran Odt PO Q4H PRN nausea, able to take PO Ondansetron HCl 4 mg 08/03/20 04:44 Zofran IVPUSH Q4H PRN Nausea/Vomiting Oxycodone HCl 5 mg 08/03/20 04:44 08/03/20 23:41 Oxycodone PO 5 mg Q4H PRN Administration Pain (moderate 4-6) Sodium Chloride 10 ml 08/03/20 10:46 08/03/20 23:03 Saline Flush FLUSH 10 ml ASDIRECTED PRN Administration Keep Vein Open Discontinued Medications Generic Name Dose Route Start Last Admin Trade Name Brody PRN Reason Stop Dose Admin Diphenhydramine HCl 25 mg 08/03/20 05:21 08/03/20 05:33 Benadryl IVPUSH 08/03/20 05:22 25 mg ONETIME ONE Administration Fentanyl 50 mcg 08/03/20 00:58 08/03/20 01:40 Sublimaze IVPUSH 08/03/20 00:59 50 mcg ONETIME ONE Administration Lactated Ringer's 1,000 mls @ 999 mls/hr 08/03/20 00:58 08/03/20 01:42 Ringers, Lactated IV 08/03/20 01:58 999 mls/hr .BOLUS ONE Administration Ceftriaxone Sodium 2 gm/ 100 mls @ 200 mls/hr 08/03/20 02:51 08/03/20 03:17 Sodium Chloride IV 08/03/20 03:20 200 mls/hr ONETIME ONE Administration Sodium Chloride 1,000 mls @ 100 mls/hr 08/03/20 04:45 08/03/20 16:07 Normal Saline IV 08/03/20 14:46 Infused ASDIRECTED JAKY Infusion Piperacillin Sod/Tazobactam 100 mls @ 200 mls/hr 08/03/20 09:00 08/03/20 10:15 Sod 3.375 gm/ Sodium Chloride IV 08/03/20 09:29 Infused ONETIME ONE Infusion Iopamidol 100 ml 08/03/20 02:02 08/03/20 02:13 Isovue-300 (61%) IVPUSH 08/03/20 02:03 100 ml ONETIME ONE Administration Morphine Sulfate 2 mg 08/03/20 04:44 08/03/20 05:14 Morphine IVPUSH 2 mg Q2H PRN Administration Pain (severe 7-10) - Radiology Interpretation Free Text/Narrative:: Abdomen/Pelvis CT with contrast: PROCEDURE INFORMATION: Exam: CT Abdomen And Pelvis With Contrast Exam date and time: 08/03/2020 2:26 AM Age: 35 years old Clinical indication: Other: Wbc 19,100; Additional info: Right sided pain TECHNIQUE: Imaging protocol: Computed tomography of the abdomen and pelvis with intravenous contrast. Radiation optimization: All CT scans at this facility use at least one of these dose optimization techniques: automated exposure control; mA and/or kV adjustment per patient size (includes targeted exams where dose is matched to clinical indication); or iterative reconstruction. Contrast material: [id number]; Contrast volume: 100 ml; Contrast route: INTRAVENOUS (IV); COMPARISON: CT Abdomen Pelvis wo Cont 03/25/2017 5:38 PM FINDINGS: Liver: Normal. No mass. Gallbladder and bile ducts: Normal. No calcified stones. No ductal dilation. Pancreas: Normal. No ductal dilation. Spleen: Normal. No splenomegaly. Adrenal glands: Normal. No mass. Kidneys and ureters: Uroepithelial thickening of the right kidney with inhomogeneity in the right kidney consistent with right-sided ureteritis with pyelonephritis. There is no evidence for renal calculi or obstructive uropathy. Stomach and bowel: Unremarkable. No obstruction. No mucosal thickening. Appendix: Normal appendix right lower quadrant. Intraperitoneal space: Unremarkable. No free air. No significant fluid collection. Vasculature: Unremarkable. No abdominal aortic aneurysm. Lymph nodes: Unremarkable. No enlarged lymph nodes. Urinary bladder: Unremarkable as visualized. Reproductive: Unremarkable as visualized. Bones/joints: Unremarkable. No acute fracture. Soft tissues: Unremarkable. IMPRESSION: 1. Uroepithelial thickening of the right kidney with inhomogeneity in the right kidney consistent with right-sided ureteritis with pyelonephritis. There is no evidence for renal calculi or obstructive uropathy. Please correlate with urinalysis. 2. Normal appendix right lower quadrant Thank you for allowing us to participate in the care of your patient. Dictated and Authenticated by: Sourav Lira MD 08/03/2020 3:12 AM Central Time ([place] & [place]) See rad report - Re-Assessments/Exams Free Text/Narrative Re-Assessment/Exam: 08/03/20 03:39 Pt case discussed with Dr. Husain who agreed to accept the patient for acute inpatient admission. Departure - Departure Time of Disposition: 03:39 Disposition: Admitted As Inpatient 68 Condition: Fair Clinical Impression: Pyelonephritis - Discharge Information *PRESCRIPTION DRUG MONITORING PROGRAM REVIEWED*: No *COPY OF PRESCRIPTION DRUG MONITORING REPORT IN PATIENT ZEESHAN: No Sepsis Event Note (ED) - Evaluation Sepsis Screening Result: No Definite Risk - My Orders Last 24 Hours: My Active Orders 08/03/20 01:50 CULTURE BLOOD [BC] Stat 08/03/20 01:54 CULTURE BLOOD [BC] Stat - Assessment/Plan Last 24 Hours: My Active Orders 08/03/20 01:50 CULTURE BLOOD [BC] Stat 08/03/20 01:54 CULTURE BLOOD [BC] Stat
[2020-08-03] MEDS ORDERED: Morphine 2 MG/ML SYRINGE IVPUSH PRN (04:44)
[2020-08-03] MEDS ORDERED: Ondansetron 4 MG Tab.DIS PO PRN (04:44)
[2020-08-03] MEDS ORDERED: Acetaminophen 325 MG Tab PO PRN (04:44)
[2020-08-03] MEDS ORDERED: Ondansetron 4 MG/2 ML SDV IVPUSH PRN (04:44)
[2020-08-03] MEDS ORDERED: Sodium Chloride 0.9% 1,000 ML IV SCH (04:45)
--- NOTE | 2020-08-03 04:47 | PCM.HP ---
H&P History of Present Illness - General Date of Service: 08/03/20 Admit Problem/Dx: Admission Diagnosis/Problem Admission Diagnosis/Problem Pyelonephritis - History of Present Illness Initial Comments - Free Text/Narative: Patient is a 35-year-old female with medical history significant for pyelonephri tis in 2017, condyloma, ovarian cyst, and obesity who presented to the ED with complaints of 2 days of worsening right flank pain. States that she tried Tylenol at home but did not improve her symptoms. Reports the pain was 10 out of 10 when she came to the ED. States the pain is improved to 6/10 but worsens with movement. Reports nausea but denies emesis. Reports chills but denies any fevers. Denies chest pain, shortness of pressure, hematuria, edema, diarrhea, constipation, or any new symptoms. Denies any abdominal trauma. In the ED, EKG showed pyelonephritis. UA was positive for nitrites and leukocytes. WBC count was 19. Patient received a dose of Rocephin and and admitted for further management. 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: Musculoskeletal History: Reports: None Neurological History: Reports: Concussion, Head Trauma Psychiatric History: Reports: Addiction, Anxiety Endocrine/Metabolic History: Reports: None Hematologic History: Reports: None Immunologic History: Reports: None Oncologic (Cancer) History: Reports: None Dermatologic History: Reports: None - Infectious Disease History Infectious Disease History: Reports: None - Past Surgical History Head Surgeries/Procedures: Reports: None Female Surgical History: Reports: Section, LEEP, Tubal Ligation Social & Family History - Family History Cardiac: Reports: Heart Failure Other Cardiac Family History: mother Other Family History: Mother has kidney failure Neurological: Reports: Seizure Other Neurological Family History: Mother epileptic and has seizures Other Endocrine/Metabolic Family History: Mother has diabetes; client unsure which type - Tobacco Use Tobacco Use Status *Q: Current Every Day Tobacco User Years of Tobacco use: 10 Packs/Tins Daily: 0.5 - Caffeine Use Caffeine Use: Reports: Coffee Caffeine Use Comment: Herbalife - Recreational Drug Use Recreational Drug Use: No H&P Review of Systems - Review of Systems: Review Of Systems: Comprehensive ROS is negative, except as noted in HPI. Exam - Exam Exam: Not Obtained - Vital Signs Vital Signs: Last Vital Signs Temp 98.1 F 08/03/20 03:54 Pulse 98 08/03/20 03:54 Resp 16 08/03/20 03:54 BP 109/60 08/03/20 03:54 Pulse Ox 97 08/03/20 03:54 Weight: 169 lb 3.2 oz - Exam General: Alert, Oriented, Mild Distress (Sleeping when I got to patient's room. ), Moderate Distress HEENT: Conjunctiva Clear, EOMI, Hearing Intact, Mucosa Moist & [place] Neck: Supple, Trachea Midline Lungs: Clear to Auscultation, Normal Respiratory Effort Cardiovascular: Regular Rhythm, Normal S1, Normal S2, Tachycardia GI/Abdominal Exam: Normal Bowel Sounds, Soft, Non-Tender, No Distention (Female) Exam: Normal External Exam Extremities: Normal Inspection, Normal Range of Motion, Non-Tender, No Pedal E gerardo Peripheral Pulses: 2+: Radial (L), Radial (R), Dorsalis Pedis (L), Dorsalis Pedis (R) Skin: Warm, Dry, Intact Neuro Extensive - Mental Status: Alert, Oriented x3, Normal Mood/Affect Psychiatric: Alert, Normal Affect, Normal Mood Physical Exam Comments:: #Sepsis due to pyelonephritis: Patient with finding of right-sided pyelonephritis on CT scan she presented with right flank pain and was found to have leukocytes and nitrates on UA. Also has leukocytosis with WBC count of 19 and heart rate in the 90s. Follow-up on urine culture Follow-up on blood culture Continue antibiotics As needed pain regimen #Obesity: Weight loss counseling DVT prophylaxis: Encourage ambulation GI prophylaxis: General diet CODE STATUS: Full code per patient preference. - Patient Data Lab Results Last 24 hrs: Laboratory Results - last 24 hr 08/03/20 08/03/20 08/03/20 Range/Units 00:42 00:42 00:44 WBC 19.1 H (5.0-10.0) 10^3/uL RBC 4.36 (4.2-5.4) 10^6/uL Hgb 12.7 (12.0-16.0) g/dL Hct 39.0 (37.0-47.0) % MCV 89.4 (80-100) fL MCH 29.1 (27.0-34.0) pg MCHC 32.6 L (33.0-35.0) g/dL Plt Count 253 (150-450) 10^3/uL Lymph % (Auto) 13.9 L (20.5-50.1) % [place] % (Auto) 4.1 (2-8) % Eos % (Auto) 0.6 L (1.0-3.0) % Add Manual Diff Yes Neutrophils % (Manual) 82 H (42-75) % Lymphocytes % (Manual) 14 L (20-50) % Monocytes % (Manual) 3 (2-8) % Eosinophils % (Manual) 1 (1-3) % Sodium (136-145) mmol/L Potassium (3.5-5.1) mmol/L Chloride (98-107) mmol/L Carbon Dioxide (21-32) mmol/L Anion Gap (7-13) mEq/L BUN (7-18) mg/dL Creatinine (0.55-1.02) mg/dL Est Cr Clr Drug Dosing mL/min Estimated GFR (MDRD) BUN/Creatinine Ratio (No establ ref range) Glucose (74-99) mg/dL Lactic Acid (0.4-2.0) mmol/L Calcium (8.5-10.1) mg/dL Total Bilirubin (0.2-1.0) mg/dL AST (15-37) U/L ALT (14-59) U/L Alkaline Phosphatase (46-116) U/L Total Protein (6.4-8.2) g/dL Albumin (3.4-5.0) g/dL Globulin Albumin/Globulin Ratio Urine Color Yellow (YELLOW) Urine Appearance Turbid (CLEAR) Urine pH 7.0 (5.0-9.0) Ur Specific [place] 1.025 (1.005-1.030) Urine Protein 100 H (NEGATIVE) Urine Glucose (UA) Negative (NEGATIVE) Urine Ketones Negative (NEGATIVE) Urine Occult Blood Small H (NEGATIVE) Urine Nitrite Positive H (NEGATIVE) Urine Bilirubin Negative (NEGATIVE) Urine Urobilinogen 0.2 (0.2-1.0) mg/dL Ur Leukocyte Esterase Small H (NEGATIVE) Urine RBC 10-20 H /HPF Urine WBC >100 H (0-5/HPF) /HPF Ur Epithelial Cells Few (NOT SEEN) /HPF Amorphous Sediment Moderate H (NOT SEEN) /HPF Urine Bacteria Many H (0-FEW/HPF) /HPF Urine Mucus Few H (NOT SEEN) /LPF Urine HCG, Qual Negative 08/03/20 08/03/20 Range/Units 00:44 01:54 WBC (5.0-10.0) 10^3/uL RBC (4.2-5.4) 10^6/uL Hgb (12.0-16.0) g/dL Hct (37.0-47.0) % MCV (80-100) fL MCH (27.0-34.0) pg MCHC (33.0-35.0) g/dL Plt Count (150-450) 10^3/uL Lymph % (Auto) (20.5-50.1) % Kane % (Auto) (2-8) % Eos % (Auto) (1.0-3.0) % Add Manual Diff Neutrophils % (Manual) (42-75) % Lymphocytes % (Manual) (20-50) % Monocytes % (Manual) (2-8) % Eosinophils % (Manual) (1-3) % Sodium 137 (136-145) mmol/L Potassium 3.8 (3.5-5.1) mmol/L Chloride 102 (98-107) mmol/L Carbon Dioxide 28 (21-32) mmol/L Anion Gap 10.8 (7-13) mEq/L BUN 10 (7-18) mg/dL Creatinine 0.79 (0.55-1.02) mg/dL Est Cr Clr Drug Dosing 72.75 mL/min Estimated GFR (MDRD) > 60 BUN/Creatinine Ratio 12.7 (No establ ref range) Glucose 82 (74-99) mg/dL Lactic Acid 1.5 (0.4-2.0) mmol/L Calcium 8.8 (8.5-10.1) mg/dL Total Bilirubin 0.3 (0.2-1.0) mg/dL AST 11 L (15-37) U/L ALT 16 (14-59) U/L Alkaline Phosphatase 106 (46-116) U/L Total Protein 7.2 (6.4-8.2) g/dL Albumin 3.7 (3.4-5.0) g/dL Globulin 3.5 Albumin/Globulin Ratio 1.1 Urine Color (YELLOW) Urine Appearance (CLEAR) Urine pH (5.0-9.0) Ur Specific [place] (1.005-1.030) Urine Protein (NEGATIVE) Urine Glucose (UA) (NEGATIVE) Urine Ketones (NEGATIVE) Urine Occult Blood (NEGATIVE) Urine Nitrite (NEGATIVE) Urine Bilirubin (NEGATIVE) Urine Urobilinogen (0.2-1.0) mg/dL Ur Leukocyte Esterase (NEGATIVE) Urine RBC /HPF Urine WBC (0-5/HPF) /HPF Ur Epithelial Cells (NOT SEEN) /HPF Amorphous Sediment (NOT SEEN) /HPF Urine Bacteria (0-FEW/HPF) /HPF Urine Mucus (NOT SEEN) /LPF Urine HCG, Qual Result Diagrams: 08/03/20 00:44 08/03/20 00:44 - Problem List (1) Obesity SNOMED Code(s): 678655798, 861678703 ICD Code: E66.9 - OBESITY, UNSPECIFIED Status: Acute Current Visit: Yes (2) Pyelonephritis SNOMED Code(s): 20610823 ICD Code: N12 - TUBULO-INTERSTITIAL NEPHRITIS, NOT SPCF ACUTE OR CHRONIC Status: Acute Current Visit: No (3) Sepsis SNOMED Code(s): 45311389 ICD Code: A41.9 - SEPSIS, UNSPECIFIED ORGANISM Status: Acute Current Visit: No Qualifiers: Sepsis type: Escherichia coli Qualified Code(s): A41.51 - Sepsis due to Escherichia coli [E. coli] Problem List Initiated/Reviewed/Updated: Yes Orders Last 24hrs: Active Orders 24 hr Category Date Time Status Admission Diagnosis [ADT] Stat ADT 08/03/20 03:42 Ordered Patient Status [ADT] Routine ADT 08/03/20 03:42 Active Antiembolic Devices [RC] PER UNIT ROUTINE Care 08/03/20 04:45 Ordered Intake and Output [RC] QSHIFT Care 08/03/20 04:44 Ordered Oxygen Therapy [RC] PRN Care 08/03/20 04:44 Ordered Up ad Caitlin [RC] ASDIRECTED Care 08/03/20 04:44 Ordered VTE/DVT Education [RC] PER UNIT ROUTINE Care 08/03/20 04:44 Ordered Vital Signs [RC] Q4H Care 08/03/20 04:44 Ordered Regular Diet [DIET] Diet 08/03/20 Breakfast Ordered BASIC METABOLIC PANEL,BMP [CHEM] AM Lab 08/04/20 05:11 Ordered CBC W/O DIFF,HEMOGRAM [HEME] AM Lab 08/04/20 05:11 Ordered CORONAVIRUS COVID-19 BOBBY [MOLEC] Stat Lab 08/03/20 03:49 Received CULTURE BLOOD [BC] Stat Lab 08/03/20 01:50 Received CULTURE BLOOD [BC] Stat Lab 08/03/20 01:54 Received CULTURE URINE [RM] Stat Lab 08/03/20 00:42 Received Acetaminophen [TylenoL] Med 08/03/20 04:44 Ordered 650 mg PO Q4H PRN Morphine Med 08/03/20 04:44 Ordered 2 mg IVPUSH Q2H PRN Ondansetron [Zofran ODT] Med 08/03/20 04:44 Ordered 4 mg PO Q4H PRN Ondansetron [Zofran] Med 08/03/20 04:44 Ordered 4 mg IVPUSH Q4H PRN Sodium Chloride 0.9% [Normal Saline] 1,000 ml Med 08/03/20 04:45 Ordered IV ASDIRECTED oxyCODONE Med 08/03/20 04:44 Ordered 5 mg PO Q4H PRN Blood Culture x2 Reflex Set [OM.PC] Stat Oth 08/03/20 01:20 Ordered Sequential Compression Device [OM.PC] Per Unit Routine Oth 08/03/20 04:44 Ordered Resuscitation Status Routine Resus Stat 08/03/20 04:44 Ordered
[2020-08-03] MEDS: oxyCODONE 5 MG Tab PO PRN ×5 (05:13→23:41)
[2020-08-03] MEDS ORDERED: diphenhydrAMINE 50 MG/ML SDV IVPUSH ONE (05:21)
[2020-08-03] MEDS ORDERED: fentaNYL 100 MCG/2 ML SDV IVPUSH PRN (05:22)
[2020-08-03] MEDS ORDERED: Piperacillin/Tazobactam 3.375 GM in Sodium Chloride 0.9% 100 ML IV ONE (09:00)
[2020-08-03] MEDS: Piperacillin/Tazobactam 3.375 GM in Sodium Chloride 0.9% 100 ML IV SCH ×2 (18:00→23:03)
[2020-08-03] MEDS: Sodium Chloride 0.9% 10 ML Syringe FLUSH PRN (23:03)
[2020-08-04] MEDS: oxyCODONE 5 MG Tab PO PRN ×3 (04:17→12:40)
[2020-08-04] MEDS: Piperacillin/Tazobactam 3.375 GM in Sodium Chloride 0.9% 100 ML IV SCH ×2 (05:28→11:14)
[2020-08-04] MEDS: Sodium Chloride 0.9% 10 ML Syringe FLUSH PRN (05:28)
[2020-08-04 06:54] LABS: ANION GAP 13.7 mEq/L (7-13); CHLORIDE,CL 103 mmol/L (98-107); SODIUM,NA 137 mmol/L (136-145)
--- NOTE | 2020-08-04 10:10 | PCM.DCSUM1 ---
Discharge Summary - Hospital Course Free Text/Narrative:: Patient is a 35-year-old female with medical history significant for pyelonephritis in 2017, condyloma, ovarian cyst, and obesity who was admitted for sepsis due to pyelonephritis. In the ED, CT showed pyelonephritis. UA was positive for nitrites and leukocytes. WBC count was 19. Patient received a dose of Rocephin and and admitted for further management. She was treated with Zosyn. Urine cultures came back positive for gram negative rods. Patient improved clinically. Requested to be transferred home as her daughter was home alone with traffic control officer. 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 She is discharged home on Ciprofloxacin and to follow up with PCP. HPI Initial Comments: Patient is a 35-year-old female with medical history significant for pyelonephritis in 2017, condyloma, ovarian cyst, and obesity who presented to the ED with complaints of 2 days of worsening right flank pain. States that she tried Tylenol at home but did not improve her symptoms. Reports the pain was 10 out of 10 when she came to the ED. States the pain is improved to 6/10 but worsens with movement. Reports nausea but denies emesis. Reports chills but denies any fevers. Denies chest pain, shortness of pressure, hematuria, edema, diarrhea, constipation, or any new symptoms. Denies any abdominal trauma. In the ED, EKG showed pyelonephritis. UA was positive for nitrites and leukocytes. WBC count was 19. Patient received a dose of Rocephin and and admitted for further management. Diagnosis: Stroke: No - Discharge Data Discharge Date: 08/04/20 Discharge Disposition: Home, Self-Care 01 Condition: Fair - Referral to Home Health Primary Care Physician: PCP None - Discharge Diagnosis/Problem(s) (1) Obesity SNOMED Code(s): 214701691, [id number] ICD Code: E66.9 - OBESITY, UNSPECIFIED Status: Acute Current Visit: Yes (2) Pyelonephritis SNOMED Code(s): 54663856 ICD Code: N12 - TUBULO-INTERSTITIAL NEPHRITIS, NOT SPCF ACUTE OR CHRONIC Status: Acute Current Visit: No (3) Sepsis SNOMED Code(s): 37486522 ICD Code: A41.9 - SEPSIS, UNSPECIFIED ORGANISM Status: Acute Current Visi t: No Qualifiers: Sepsis type: Escherichia coli Qualified Code(s): A41.51 - Sepsis due to Escherichia coli [E. coli] - Discharge Plan *PRESCRIPTION DRUG MONITORING PROGRAM REVIEWED*: No *COPY OF PRESCRIPTION DRUG MONITORING REPORT IN PATIENT ZEESHAN: No Prescriptions/Med Rec: Ciprofloxacin HCl [Cipro] 500 mg PO BID #10 tablet Ondansetron [Zofran ODT] 4 mg PO Q4H PRN #10 tab.dis PRN Reason: nausea, able to take PO Home Medications: Home Meds Acetaminophen [Tylenol] 650 mg PO Q4H PRN tablet 08/04/20 [Rx] Ciprofloxacin HCl [Cipro] 500 mg PO BID #10 tablet 08/04/20 [Rx] Ondansetron [Zofran ODT] 4 mg PO Q4H PRN #10 tab.dis 08/04/20 [Rx] Patient Handouts: Ondansetron oral dissolving tablet, Pyelonephritis, Adult, [id number], Ciprofloxacin tablets Referrals: Aakash Munoz MD [Physician] - - Discharge Summary/Plan Comment DC Time >30 min.: Yes - General Info Date of Service: 08/04/20 Admission Dx/Problem (Free Text: Admission Diagnosis/Problem Admission Diagnosis/Problem Pyelonephritis Functional Status: Reports: Pain Controlled (01/06 when worse. ) - Review of Systems General: Reports: No Symptoms HEENT: Reports: No Symptoms Pulmonary: Reports: No Symptoms Cardiovascular: Reports: No Symptoms Gastrointestinal: Reports: No Symptoms Genitourinary: Reports: Flank Pain (Right. ) Musculoskeletal: Reports: No Symptoms Skin: Reports: No Symptoms Neurological: Reports: No Symptoms Psychiatric: Reports: No Symptoms - Patient Data Vitals - Most Recent: Last Vital Signs Temp 98.5 F 08/04/20 07:58 Pulse 71 08/04/20 07:58 Resp 20 08/04/20 07:58 BP 100/47 L 08/04/20 07:58 Pulse Ox 98 08/04/20 07:58 Weight - Most Recent: 169 lb 3.2 oz I&O - Last 24 hours: Intake & Output 08/03/20 08/04/20 08/04/20 22:59 06:59 14:59 Intake Total 360 550 Output Total 1000 Balance 360 -450 Lab Results - Last 24 hrs: Laboratory Results - last 24 hr 08/04/20 08/04/20 Range/Units 06:11 06:11 WBC 14.3 H (5.0-10.0) 10^3/uL RBC 3.98 L (4.2-5.4) 10^6/uL Hgb 11.7 L (12.0-16.0) g/dL Hct 35.5 L (37.0-47.0) % MCV 89.2 (80-100) fL MCH 29.4 (27.0-34.0) pg MCHC 33.0 (33.0-35.0) g/dL Plt Count 422 D (150-450) 10^3/uL Sodium 137 (136-145) mmol/L Potassium 3.7 (3.5-5.1) mmol/L Chloride 103 (98-107) mmol/L Carbon Dioxide 24 (21-32) mmol/L Anion Gap 13.7 H (7-13) mEq/L BUN 9 (7-18) mg/dL Creatinine 0.75 (0.55-1.02) mg/dL Est Cr Clr Drug Dosing 76.63 mL/min Estimated GFR (MDRD) > 60 Glucose 94 (74-99) mg/dL Calcium 7.9 L (8.5-10.1) mg/dL GENE Results - Last 24 hrs: Microbiology 08/03/20 00:42 Urine Culture - Preliminary Urine, Voided 08/03/20 01:50 Aerobic Blood Culture - Preliminary Blood - Arm, Left NO GROWTH AFTER 1 DAY Anaerobic Blood Culture - Preliminary NO GROWTH AFTER 1 DAY 08/03/20 01:54 Aerobic Blood Culture - Preliminary Blood - Arm, Right NO GROWTH AFTER 1 DAY Anaerobic Blood Culture - Preliminary NO GROWTH AFTER 1 DAY Med Orders - Current: Current Medications Acetaminophen (Tylenol) 650 mg PO Q4H PRN PRN Reason: Pain (Mild 1-3)/fever Fentanyl (Sublimaze) 25 mcg IVPUSH Q4H PRN PRN Reason: Pain (severe 7-10) Piperacillin Sod/Tazobactam (Sod 3.375 gm/ Sodium Chloride) 100 mls @ 200 mls/hr IV Q6H JAKY Last Admin: 08/04/20 05:28 Dose: 200 mls/hr Documented by: Ondansetron HCl (Zofran Odt) 4 mg PO Q4H PRN PRN Reason: nausea, able to take PO Ondansetron HCl (Zofran) 4 mg IVPUSH Q4H PRN PRN Reason: Nausea/Vomiting Oxycodone HCl (Oxycodone) 5 mg PO Q4H PRN PRN Reason: Pain (moderate 4-6) Last Admin: 08/04/20 08:42 Dose: 5 mg Documented by: Sodium Chloride (Saline Flush) 10 ml FLUSH ASDIRECTED PRN PRN Reason: Keep Vein Open Last Admin: 08/04/20 05:28 Dose: 10 ml Documented by: Discontinued Medications Diphenhydramine HCl (Benadryl) 25 mg IVPUSH ONETIME ONE Stop: 08/03/20 05:22 Last Admin: 08/03/20 05:33 Dose: 25 mg Documented by: Fentanyl (Sublimaze) 50 mcg IVPUSH ONETIME ONE Stop: 08/03/20 00:59 Last Admin: 08/03/20 01:40 Dose: 50 mcg Documented by: Lactated Ringer's (Ringers, Lactated) 1,000 mls @ 999 mls/hr IV .BOLUS ONE Stop: 08/03/20 01:58 Last Admin: 08/03/20 01:42 Dose: 999 mls/hr Documented by: Ceftriaxone Sodium 2 gm/ (Sodium Chloride) 100 mls @ 200 mls/hr IV ONETIME ONE Stop: 08/03/20 03:20 Last Admin: 08/03/20 03:17 Dose: 200 mls/hr Documented by: Sodium Chloride (Normal Saline) 1,000 mls @ 100 mls/hr IV ASDIRECTED JAKY Stop: 08/03/20 14:46 Last Infusion: 08/03/20 16:07 Dose: Infused Documented by: Piperacillin Sod/Tazobactam (Sod 3.375 gm/ Sodium Chloride) 100 mls @ 200 mls/hr IV ONETIME ONE Stop: 08/03/20 09:29 Last Infusion: 08/03/20 10:15 Dose: Infused Documented by: Iopamidol (Isovue-300 (61%)) 100 ml IVPUSH ONETIME ONE Stop: 08/03/20 02:03 Last Admin: 08/03/20 02:13 Dose: 100 ml Documented by: Morphine Sulfate (Morphine) 2 mg IVPUSH Q2H PRN PRN Reason: Pain (severe 7-10) Last Admin: 08/03/20 05:14 Dose: 2 mg Documented by: - Exam General: Reports: Alert, Oriented HEENT: Reports: Pupils Equal, Pupils Reactive, Mucous Membr. Moist/[place] Neck: Reports: Supple Lungs: Reports: Clear to Auscultation, Normal Respiratory Effort Cardiovascular: Reports: Regular Rate, Regular Rhythm GI/Abdominal Exam: Normal Bowel Sounds, Soft, Non-Tender, No Distention, Other (Right flank with mild tenderness to palpation. ) Extremities: Normal Inspection, Normal Range of Motion, Non-Tender Skin: Reports: Warm, Dry, Intact Psy/Mental Status: Reports: Alert, Normal Affect, Normal Mood
[2020-08-04 12:25] VITALS: BP 101/49; PULSE 72
== END 2020-08-04 13:00 | disposition home or self-care (01) | DRG 872 ==
LOC: DL.ED 00:21 → DL.MS 03:42
PROVIDERS: ADMIT Internal Medicine; ATTEND Internal Medicine
DX: A41.51 Sepsis due to Escherichia coli [E. coli] (principal); Z20.828 Contact with and (suspected) exposure to other viral communicable diseases; N12 Tubulo-interstitial nephritis, not specified as acute or chronic; E66.9 Obesity, unspecified; F41.9 Anxiety disorder, unspecified; F17.210 Nicotine dependence, cigarettes, uncomplicated; Z79.899 Other long term (current) drug therapy; Z87.440 Personal history of urinary (tract) infections; Z68.33 Body mass index [BMI] 33.0-33.9, adult
CPT/HCPCS: 36415; 74177; 80048; 80053; 81001; 81025; 83605; 85025; 85027; 87040; 87086; 87088; 87186; 96365; 96375; 99222; 99239; 99284; 99285-25; A9270-GY; J0696; J1200; J2270; J2543; J3010; J7030; J7050; J7120; Q9967; U0002